=== PATIENT | male | born 1935 | race Caucasian/White ===

== ENCOUNTER 2021-11-19 07:27 | Observation (INO) | payer MEDICARE, OTHER ==
[2021-11-19 08:09] LABS: #Eosinphils 0.1 thou/uL (0.0-0.7); #Lymphocytes 0.9 thou/uL (1.20-3.40); #Monocytes 0.9 thou/uL (0.11-0.59); #Neutrophils 10.6 thou/uL (1.40-6.50); %Basophils 0.2 % (0.0-1.0); %Eosinophils 0.5 % (0.0-10.0); %Lymphocytes 6.9 % (21.0-51.0); %Monocytes 6.9 % (0.0-10.0); %Neutrophils 85.5 % (42.0-75.0); Hemoglobin 16.2 g/dL (14.0-18.0); Mean Corpuscular Hemoglobin 32.7 pg (27.0-31.0); Mean Corpuscular Volume 98.9 fL (78.0-98.0); Mean Platelet Volume 7.7 fL (7.4-10.4); Platelet Count 192 thou/uL (130-400); RBC Distribution Width 13.1 % (11.5-14.5); Red Blood Cell (RBC) Count 4.95 mill/uL (4.70-6.10); White Blood Cell (WBC) Count 12.4 thou/uL (4.8-10.8)
[2021-11-19 08:31] LABS: ALT (SGPT) 89 U/L (8-55); AST (SGOT) 106 U/L (5-34); Albumin 4.4 g/dL (3.4-4.8); Alkaline Phosphatase 177 U/L (40-110); Anion Gap 17 mmol/L (10-20); BUN (Urea Nitrogen) 27 mg/dL (8.4-25.7); Bilirubin, Total 1.2 mg/dL (0.2-1.2); CK (CPK) 296 U/L (30-200); Calc. Creatinine Clearance 0 mL/min (70-130); Calcium 11.3 mg/dL (7.8-10.44); Carbon Dioxide 30 mmol/L (23-31); Chloride 98 mmol/L (98-107); Estimated GFR 60; Globulin 3.3 g/dL (2.4-3.5); Glucose 152 mg/dL (83-110); Magnesium 1.8 mg/dL (1.6-2.6); Protein, Total 7.7 g/dL (5.8-8.1); Sodium 141 mmol/L (136-145)
[2021-11-19] MEDS ORDERED: Ondansetron PF 4 MG/2 ML Vial ONE (08:44)
[2021-11-19] MEDS ORDERED: Morphine 4 MG/ML VIAL ONE (08:44)
[2021-11-19] MEDS ORDERED: Lidocaine Viscous Sol 2% 15 ml UD Cup ONE (08:45)
[2021-11-19] MEDS ORDERED: Mag-Al 1200 mg/1200 mg/30 ML UDCUP ONE (08:45)
[2021-11-19] MEDS ORDERED: Dicyclomine 20 MG TAB ONE (09:47)
[2021-11-19] MEDS ORDERED: Acetaminophen 500 MG TAB ONE (09:47)
[2021-11-19] MEDS ORDERED: Morphine 2 MG/ML VIAL ONE (09:48)
[2021-11-19 10:42] LABS: Bacteria/HPF None Seen HPF (None Seen); Bilirubin Negative (Negative); Blood, Urine 1+ (Negative); Clarity Clear (Clear); Glucose, Urine (Dipstick) Normal (Negative); Ketone, Urine 10 mg/dL (Negative); Leukocyte Negative Leu/uL (Negative); Nitrite Negative (Negative); Protein, Urine (Dipstick) 30 mg/dL (Neg-Trace); Specific Gravity, Urine 1.018 (1.002-1.036); Squamous Epithelial None Seen HPF (0-3); Urobilinogen Normal mg/dL (Less than 2); WBC/HPF 0-3 HPF (0-3); pH, Urine 6.5 (5.0-9.0)
[2021-11-19 14:06] LABS: Troponin I 0.034 ng/mL (< 0.028)
[2021-11-19 15:55] VITALS: BMI 24.8
[2021-11-19] MEDS ORDERED: Bisacodyl 10 MG SUPP PR PRN (16:31)
[2021-11-19] MEDS ORDERED: Senokot S 8.6-50 MG TAB PO PRN (16:31)
[2021-11-19] MEDS ORDERED: Bisacodyl 5 MG TAB PO PRN (16:31)
[2021-11-19] MEDS ORDERED: Ondansetron ODT 4 MG TAB PO PRN (16:31)
[2021-11-19] MEDS ORDERED: Ondansetron PF 4 MG/2 ML Vial IVP PRN (16:31)
[2021-11-19 17:22] LABS: Troponin I 0.039 ng/mL (< 0.028)
[2021-11-19] MEDS: Sodium Chloride 0.9% 1,000 ML IV SCH (17:40)
[2021-11-19] MEDS: HYDROcodone/Acetaminophen 5/325 mg Tablet PO PRN (21:54)
[2021-11-19] MEDS: Dicyclomine 20 MG TAB PO SCH (21:55)
[2021-11-19] MEDS: Propranolol 60 MG TAB PO SCH (21:55)
[2021-11-19] MEDS: Nitroglycerin 2% Ointment 1 INCH/1 GM Packet TOP SCH (21:55)
[2021-11-20 05:21] LABS: #Basophils 0.1 thou/uL (0.0-0.2); #Eosinphils 0.3 thou/uL (0.0-0.7); #Lymphocytes 1.8 thou/uL (1.20-3.40); #Monocytes 1.1 thou/uL (0.11-0.59); #Neutrophils 6.1 thou/uL (1.40-6.50); %Basophils 0.6 % (0.0-1.0); %Eosinophils 3.2 % (0.0-10.0); %Monocytes 11.4 % (0.0-10.0); %Neutrophils 65.8 % (42.0-75.0); Mean Corpuscular HGB CONC 34.1 g/dL (32.0-36.0); Mean Corpuscular Volume 99.5 fL (78.0-98.0); Mean Platelet Volume 8.4 fL (7.4-10.4); Platelet Count 152 thou/uL (130-400); Red Blood Cell (RBC) Count 3.55 mill/uL (4.70-6.10); White Blood Cell (WBC) Count 9.3 thou/uL (4.8-10.8)
[2021-11-20 05:45] LABS: ALT (SGPT) 67 U/L (8-55); AST (SGOT) 77 U/L (5-34); Albumin 3.3 g/dL (3.4-4.8); Alkaline Phosphatase 129 U/L (40-110); Anion Gap 11 mmol/L (10-20); BUN (Urea Nitrogen) 44 mg/dL (8.4-25.7); Bilirubin, Total 1.4 mg/dL (0.2-1.2); Calc. Creatinine Clearance 52 mL/min (70-130); Calcium 8.8 mg/dL (7.8-10.44); Carbon Dioxide 28 mmol/L (23-31); Chloride 102 mmol/L (98-107); Estimated GFR 60; Globulin 2.5 g/dL (2.4-3.5); Glucose 95 mg/dL (83-110); Potassium 4.7 mmol/L (3.5-5.1); Protein, Total 5.8 g/dL (5.8-8.1); Sodium 136 mmol/L (136-145)
[2021-11-20] MEDS: Acetaminophen 325 MG TAB PO PRN ×2 (06:09→14:30)
[2021-11-20] MEDS: Nitroglycerin 2% Ointment 1 INCH/1 GM Packet TOP SCH ×3 (06:10→21:55)
[2021-11-20] MEDS ORDERED: Hydrochlorothiazide 25 MG TAB PO SCH (09:00)
[2021-11-20] MEDS: Sodium Chloride 0.9% 1,000 ML IV SCH ×3 (09:06→21:53)
[2021-11-20] MEDS: Allopurinol 300 MG TAB PO SCH (09:30)
[2021-11-20] MEDS: Dicyclomine 20 MG TAB PO SCH ×4 (09:30→21:54)
[2021-11-20] MEDS: Propranolol 60 MG TAB PO SCH ×2 (14:15→21:54)
[2021-11-20] MEDS ORDERED: Melatonin 3 MG TAB PO PRN (21:49)
[2021-11-21 05:08] LABS: Anion Gap 11 mmol/L (10-20); BUN (Urea Nitrogen) 24 mg/dL (8.4-25.7); Calc. Creatinine Clearance 63 mL/min (70-130); Calcium 8.3 mg/dL (7.8-10.44); Carbon Dioxide 25 mmol/L (23-31); Cardiac Risk 2.4 (Less than 4.5); Chloride 104 mmol/L (98-107); Cholesterol 109 mg/dl (< 200 Desired); Estimated GFR 76; Glucose 102 mg/dL (83-110); HDL Cholesterol 46 mg/dL (>60 Neg Risk); LDL Cholesterol, Calculated 43 mg/dL; Potassium 4.1 mmol/L (3.5-5.1); Sodium 136 mmol/L (136-145); Triglycerides 102 mg/dL (Less than 150)
[2021-11-21] MEDS: HYDROcodone/Acetaminophen 5/325 mg Tablet PO PRN (06:32)
[2021-11-21] MEDS: Nitroglycerin 2% Ointment 1 INCH/1 GM Packet TOP SCH ×2 (06:33→14:19)
[2021-11-21] MEDS: Sodium Chloride 0.9% 1,000 ML IV SCH (07:13)
[2021-11-21] MEDS: Dicyclomine 20 MG TAB PO SCH ×2 (09:21→12:22)
[2021-11-21] MEDS: Allopurinol 300 MG TAB PO SCH (09:21)
[2021-11-21] MEDS: Propranolol 60 MG TAB PO SCH (09:22)
[2021-11-21 10:24] LABS: #Eosinphils 0.5 thou/uL (0.0-0.7); #Lymphocytes 1.3 thou/uL (1.20-3.40); #Monocytes 0.7 thou/uL (0.11-0.59); #Neutrophils 4.2 thou/uL (1.40-6.50); %Basophils 0.4 % (0.0-1.0); %Eosinophils 6.9 % (0.0-10.0); %Lymphocytes 19.4 % (21.0-51.0); %Monocytes 10.6 % (0.0-10.0); %Neutrophils 62.6 % (42.0-75.0); Hemoglobin 10.3 g/dL (14.0-18.0); Mean Corpuscular HGB CONC 32.2 g/dL (32.0-36.0); Mean Corpuscular Hemoglobin 32.4 pg (27.0-31.0); Mean Platelet Volume 8.6 fL (7.4-10.4); Platelet Count 125 thou/uL (130-400); RBC Distribution Width 13.1 % (11.5-14.5); Red Blood Cell (RBC) Count 3.19 mill/uL (4.70-6.10); White Blood Cell (WBC) Count 6.6 thou/uL (4.8-10.8)
[2021-11-21 16:36] VITALS: BP 128/63; TEMP 97.4
[2021-11-22] MEDS ORDERED: Propranolol HCl LA 60 MG CAP PO SCH (09:00)
== END 2021-11-21 17:23 | disposition home or self-care (01) ==
LOC: ERS 07:27 → ERHOLD 12:47 → 2NO 15:26
PROVIDERS: ADMIT Internal Medicine; ATTEND Internal Medicine
DX: R55 Syncope and collapse (principal); E86.9 Volume depletion, unspecified; T50.2X5A Adverse effect of carbonic-anhydrase inhibitors, benzothiadiazides and other diuretics, initial encounter; I48.0 Paroxysmal atrial fibrillation; I10 Essential (primary) hypertension; I65.23 Occlusion and stenosis of bilateral carotid arteries; R79.89 Other specified abnormal findings of blood chemistry; R77.8 Other specified abnormalities of plasma proteins; I08.1 Rheumatic disorders of both mitral and tricuspid valves; M10.9 Gout, unspecified; I21.A1 Myocardial infarction type 2; Z87.891 Personal history of nicotine dependence; Z79.899 Other long term (current) drug therapy; Z20.822 Contact with and (suspected) exposure to COVID-19
CPT/HCPCS: 70450; 71045; 72125; 72131; 76705; 80048; 80053; 80061; 80307; 82550; 83735; 84484 ×2; 85025 ×2; 93005; 93306; 93880; 96361; 96374; 96375; 96376; 97150; 97535; 99285; G0378 ×4; J2270; U0003; U0005; 36415; 81003; 81015; 84443; 93010; J2405; J7050

== ENCOUNTER 2021-12-02 17:25 | Emergency (ER) | payer MEDICARE, OTHER ==
[2021-12-02 19:16] LABS: #Eosinphils 0.2 thou/uL (0.0-0.7); #Lymphocytes 0.7 thou/uL (1.20-3.40); #Monocytes 0.9 thou/uL (0.11-0.59); #Neutrophils 7.9 thou/uL (1.40-6.50); %Basophils 0.1 % (0.0-1.0); %Eosinophils 2.1 % (0.0-10.0); %Lymphocytes 7.2 % (21.0-51.0); %Monocytes 8.8 % (0.0-10.0); %Neutrophils 81.9 % (42.0-75.0); Hemoglobin 12.7 g/dL (14.0-18.0); Mean Corpuscular HGB CONC 34.2 g/dL (32.0-36.0); Mean Corpuscular Hemoglobin 33.5 pg (27.0-31.0); Mean Corpuscular Volume 98.1 fL (78.0-98.0); Mean Platelet Volume 6.9 fL (7.4-10.4); Platelet Count 282 thou/uL (130-400); RBC Distribution Width 13.3 % (11.5-14.5); White Blood Cell (WBC) Count 9.7 thou/uL (4.8-10.8)
[2021-12-02 19:36] LABS: Acetaminophen Less than 10.0 mcg/mL (10.0-30.0); Alcohol Less than 10 mg/dL (Less than 10); Salicylate Less than 8.0 mg/dL (15.0-30.0)
[2021-12-02 19:38] LABS: ALT (SGPT) 190 U/L (8-55); AST (SGOT) 199 U/L (5-34); Alkaline Phosphatase 392 U/L (40-110); Anion Gap 12 mmol/L (10-20); BUN (Urea Nitrogen) 32 mg/dL (8.4-25.7); Bilirubin, Total 1.2 mg/dL (0.2-1.2); CK (CPK) 34 U/L (30-200); Calc. Creatinine Clearance 0 mL/min (70-130); Calcium 9.5 mg/dL (7.8-10.44); Carbon Dioxide 27 mmol/L (23-31); Chloride 99 mmol/L (98-107); Estimated GFR 62; Globulin 3.1 g/dL (2.4-3.5); Glucose 107 mg/dL (83-110); Potassium 4.3 mmol/L (3.5-5.1); Protein, Total 7.1 g/dL (5.8-8.1); Sodium 134 mmol/L (136-145)
[2021-12-02 21:39] LABS: Bilirubin Negative (Negative); Blood, Urine Negative (Negative); Clarity Clear (Clear); Glucose, Urine (Dipstick) Normal (Negative); Ketone, Urine 40 mg/dL (Negative); Leukocyte Negative Leu/uL (Negative); Nitrite Negative (Negative); Protein, Urine (Dipstick) Negative (Neg-Trace); Urobilinogen Normal mg/dL (Less than 2)
== END 2021-12-02 22:37 | disposition home or self-care (01) ==
LOC: ERS 17:25
DX: R53.1 Weakness (principal); I10 Essential (primary) hypertension; I48.91 Unspecified atrial fibrillation; Z87.891 Personal history of nicotine dependence; Z79.899 Other long term (current) drug therapy
CPT/HCPCS: 36415; 71045; 80053; 80307; 81003; 82550; 83880; 84484; 85025; 93005

== ENCOUNTER 2021-12-03 19:41 | Inpatient (IN) | payer MEDICARE, OTHER ==
[2021-12-03 20:52] LABS: #Basophils 0.2 thou/uL (0.0-0.2); #Eosinphils 0.1 thou/uL (0.0-0.7); #Lymphocytes 0.3 thou/uL (1.20-3.40); #Monocytes 0.6 thou/uL (0.11-0.59); #Neutrophils 9.5 thou/uL (1.40-6.50); %Basophils 1.6 % (0.0-1.0); %Eosinophils 1.1 % (0.0-10.0); %Lymphocytes 2.6 % (21.0-51.0); %Monocytes 5.9 % (0.0-10.0); %Neutrophils 88.8 % (42.0-75.0); Hemoglobin 11.7 g/dL (14.0-18.0); Mean Corpuscular HGB CONC 34.8 g/dL (32.0-36.0); Mean Corpuscular Hemoglobin 33.4 pg (27.0-31.0); Mean Corpuscular Volume 96.2 fL (78.0-98.0); Mean Platelet Volume 6.8 fL (7.4-10.4); Platelet Count 218 thou/uL (130-400); RBC Distribution Width 13.2 % (11.5-14.5); White Blood Cell (WBC) Count 10.7 thou/uL (4.8-10.8)
[2021-12-03 21:14] LABS: ALT (SGPT) 103 U/L (8-55); AST (SGOT) 80 U/L (5-34); Albumin 3.4 g/dL (3.4-4.8); Alkaline Phosphatase 307 U/L (40-110); Anion Gap 13 mmol/L (10-20); BUN (Urea Nitrogen) 28 mg/dL (8.4-25.7); Bilirubin, Total 1.7 mg/dL (0.2-1.2); Calc. Creatinine Clearance 0 mL/min (70-130); Calcium 8.6 mg/dL (7.8-10.44); Carbon Dioxide 22 mmol/L (23-31); Chloride 100 mmol/L (98-107); Estimated GFR 66; Globulin 2.8 g/dL (2.4-3.5); Glucose 107 mg/dL (83-110); Lipase 27 U/L (8-78); Magnesium 1.4 mg/dL (1.6-2.6); Potassium 3.7 mmol/L (3.5-5.1); Protein, Total 6.2 g/dL (5.8-8.1); Sodium 131 mmol/L (136-145)
[2021-12-03 21:43] LABS: CKMB 1.6 ng/mL (0-6.6)
[2021-12-03] MEDS ORDERED: Aspirin Chewable 81 MG TAB ONE (22:03)
[2021-12-03] MEDS ORDERED: Magnesium 2 GM/50 ML BAG (IN WATER) ONE (23:16)
[2021-12-03] MEDS ORDERED: Acetaminophen 325 MG TAB PO PRN (23:55)
[2021-12-03] MEDS ORDERED: Ondansetron ODT 4 MG TAB PO PRN (23:55)
[2021-12-03] MEDS ORDERED: Ondansetron PF 4 MG/2 ML Vial IVP PRN (23:55)
[2021-12-04] MEDS ORDERED: Nitroglycerin 0.4 MG TAB (25 Tab Bottle) SL PRN (00:48)
[2021-12-04] MEDS ORDERED: Enoxaparin Sodium 80 MG/0.8 ML SYRINGE SC SCH ×2 (01:00→09:00)
[2021-12-04] MEDS: Sodium Chloride 0.9% 1,000 ML IV SCH ×4 (02:08→21:07)
[2021-12-04] MEDS: cefTRIAXone\\ROCEPHIN 2 GM in Sodium Chloride 0.9% 100 ML IVPB SCH (02:08)
[2021-12-04] MEDS ORDERED: VANCOMYCIN 2 GRAM/500 ML BAG 2 GM in Premix Bag 1 BAG IVPB SCH (04:00)
[2021-12-04 04:30] LABS: #Lymphocytes 0.8 thou/uL (1.20-3.40); #Monocytes 1.1 thou/uL (0.11-0.59); #Neutrophils 8.3 thou/uL (1.40-6.50); %Basophils 0.2 % (0.0-1.0); %Eosinophils 0.3 % (0.0-10.0); %Lymphocytes 8.2 % (21.0-51.0); %Neutrophils 80.3 % (42.0-75.0); Hemoglobin 10.8 g/dL (14.0-18.0); Mean Corpuscular Hemoglobin 33.7 pg (27.0-31.0); Mean Platelet Volume 7.1 fL (7.4-10.4); Platelet Count 209 thou/uL (130-400); RBC Distribution Width 13.1 % (11.5-14.5); White Blood Cell (WBC) Count 10.3 thou/uL (4.8-10.8)
[2021-12-04 05:03] LABS: ALT (SGPT) 87 U/L (8-55); AST (SGOT) 71 U/L (5-34); Albumin 3.1 g/dL (3.4-4.8); Alkaline Phosphatase 264 U/L (40-110); Anion Gap 16 mmol/L (10-20); BUN (Urea Nitrogen) 25 mg/dL (8.4-25.7); Bilirubin, Total 0.7 mg/dL (0.2-1.2); Calc. Creatinine Clearance 61 mL/min (70-130); Calcium 7.9 mg/dL (7.8-10.44); Carbon Dioxide 18 mmol/L (23-31); Chloride 102 mmol/L (98-107); Estimated GFR 72; Glucose 98 mg/dL (83-110); Potassium 3.8 mmol/L (3.5-5.1); Protein, Total 5.1 g/dL (5.8-8.1); Sodium 132 mmol/L (136-145)
[2021-12-04 05:10] LABS: Critical Call Chem Troponin I C7; Troponin I 2.122 ng/mL (< 0.028)
[2021-12-04 05:38] VITALS: BMI 26.4
[2021-12-04] MEDS ORDERED: Enoxaparin Sodium 40 MG/0.4 ML SYRINGE SC SCH (09:00)
[2021-12-04] MEDS ORDERED: Vancomycin 1 GM in Premix Bag 1 BAG IVPB SCH (09:00)
[2021-12-04 12:44] LABS: Hemoglobin 10.3 g/dL (14.0-18.0)
[2021-12-04] MEDS: HYDROcodone/Acetaminophen 5/325 mg Tablet PO PRN ×2 (13:10→22:34)
[2021-12-04 15:17] LABS: Bacteria/HPF None Seen HPF (None Seen); Bilirubin Negative (Negative); Blood, Urine Trace (Negative); Clarity Clear (Clear); Glucose, Urine (Dipstick) Normal (Negative); Ketone, Urine 10 mg/dL (Negative); Leukocyte Negative Leu/uL (Negative); Nitrite Negative (Negative); Protein, Urine (Dipstick) Negative (Neg-Trace); RBC/HPF 0-3 HPF (0-3); Specific Gravity, Urine 1.014 (1.002-1.036); Squamous Epithelial None Seen HPF (0-3); Urobilinogen Normal mg/dL (Less than 2); WBC/HPF 0-3 HPF (0-3); pH, Urine 5.5 (5.0-9.0)
[2021-12-04 15:19] LABS: Urine Culture Reflex No No
[2021-12-04] MEDS: Carvedilol 6.25 MG TAB PO SCH (17:17)
[2021-12-04] MEDS ORDERED: Cosyntropin 250 MCG VIAL SLOW IVP SCH (17:30)
[2021-12-04 20:18] LABS: Hemoglobin 10.3 g/dL (14.0-18.0)
[2021-12-04] MEDS: Morphine 2 MG/ML VIAL SLOW IVP PRN (23:57)
[2021-12-05] MEDS: cefTRIAXone\\ROCEPHIN 2 GM in Sodium Chloride 0.9% 100 ML IVPB SCH (00:05)
[2021-12-05] MEDS ORDERED: Vancomycin 1.5 GRAM/300 ML BAG 1.5 GM in Premix Bag 1 BAG IVPB SCH (04:00)
[2021-12-05] MEDS: Melatonin 3 MG TAB PO PRN (04:13)
[2021-12-05] MEDS: HYDROcodone/Acetaminophen 5/325 mg Tablet PO PRN (04:13)
[2021-12-05 04:55] LABS: Hemoglobin 10.4 g/dL (14.0-18.0)
[2021-12-05 05:16] LABS: ALT (SGPT) 70 U/L (8-55); AST (SGOT) 50 U/L (5-34); Albumin 2.9 g/dL (3.4-4.8); Alkaline Phosphatase 202 U/L (40-110); Anion Gap 12 mmol/L (10-20); BUN (Urea Nitrogen) 16 mg/dL (8.4-25.7); Bilirubin, Total 0.4 mg/dL (0.2-1.2); Calc. Creatinine Clearance 76 mL/min (70-130); Calcium 7.9 mg/dL (7.8-10.44); Carbon Dioxide 22 mmol/L (23-31); Chloride 107 mmol/L (98-107); Estimated GFR 84; Globulin 2.2 g/dL (2.4-3.5); Glucose 91 mg/dL (83-110); Potassium 3.6 mmol/L (3.5-5.1); Protein, Total 5.1 g/dL (5.8-8.1); Sodium 137 mmol/L (136-145)
[2021-12-05] MEDS ORDERED: Enoxaparin Sodium 40 MG/0.4 ML SYRINGE SC SCH (09:00)
[2021-12-05] MEDS: Carvedilol 6.25 MG TAB PO SCH ×2 (09:55→16:49)
[2021-12-05] MEDS: Sodium Chloride 0.9% 1,000 ML IV SCH ×2 (09:55→15:44)
[2021-12-05] MEDS ORDERED: Melatonin 3 MG TAB PO SCH (22:00)
[2021-12-06] MEDS: Sodium Chloride 0.9% 1,000 ML IV SCH (00:40)
[2021-12-06] MEDS: cefTRIAXone\\ROCEPHIN 2 GM in Sodium Chloride 0.9% 100 ML IVPB SCH (00:40)
[2021-12-06] MEDS: HYDROcodone/Acetaminophen 5/325 mg Tablet PO PRN ×2 (02:30→21:12)
[2021-12-06] MEDS: Morphine 2 MG/ML VIAL SLOW IVP PRN (05:58)
[2021-12-06] MEDS: Carvedilol 6.25 MG TAB PO SCH ×2 (10:15→17:55)
[2021-12-06] MEDS: Melatonin 3 MG TAB PO PRN (21:12)
[2021-12-07] MEDS: Morphine 2 MG/ML VIAL SLOW IVP PRN (06:20)
[2021-12-07] MEDS: Carvedilol 6.25 MG TAB PO SCH ×2 (09:01→17:38)
[2021-12-07] MEDS: Lidocaine 5% Patch TD SCH (17:38)
[2021-12-07] MEDS: Melatonin 3 MG TAB PO PRN (20:58)
[2021-12-07] MEDS: HYDROcodone/Acetaminophen 5/325 mg Tablet PO PRN (20:58)
[2021-12-08] MEDS: HYDROcodone/Acetaminophen 5/325 mg Tablet PO PRN (02:45)
[2021-12-08] MEDS: Transdermal Patch Removal TOP SCH (06:38)
[2021-12-08] MEDS: Morphine 2 MG/ML VIAL SLOW IVP PRN (09:02)
[2021-12-08] MEDS: Carvedilol 6.25 MG TAB PO SCH ×2 (09:03→16:58)
[2021-12-08] MEDS ORDERED: Electrolyte Replacement Protocol 1 EACH FS SCH (11:30)
[2021-12-08] MEDS ORDERED: Electrolyte Replacement Protocol FS PRN (12:15)
[2021-12-08 12:41] LABS: #Eosinphils 0.4 thou/uL (0.0-0.7); #Lymphocytes 1.3 thou/uL (1.20-3.40); #Monocytes 0.5 thou/uL (0.11-0.59); #Neutrophils 3.7 thou/uL (1.40-6.50); %Basophils 0.6 % (0.0-1.0); %Eosinophils 6.6 % (0.0-10.0); %Lymphocytes 21.1 % (21.0-51.0); %Neutrophils 62.7 % (42.0-75.0); Hemoglobin 11.7 g/dL (14.0-18.0); Mean Corpuscular HGB CONC 32.5 g/dL (32.0-36.0); Mean Corpuscular Hemoglobin 32.5 pg (27.0-31.0); Mean Platelet Volume 6.3 fL (7.4-10.4); Platelet Count 250 thou/uL (130-400); RBC Distribution Width 13.1 % (11.5-14.5); White Blood Cell (WBC) Count 5.9 thou/uL (4.8-10.8)
[2021-12-08 13:00] LABS: ALT (SGPT) 43 U/L (8-55); AST (SGOT) 30 U/L (5-34); Albumin 3.4 g/dL (3.4-4.8); Alkaline Phosphatase 176 U/L (40-110); Anion Gap 12 mmol/L (10-20); BUN (Urea Nitrogen) 12 mg/dL (8.4-25.7); Bilirubin, Total 0.6 mg/dL (0.2-1.2); Calc. Creatinine Clearance 60 mL/min (70-130); Calcium 8.7 mg/dL (7.8-10.44); Carbon Dioxide 28 mmol/L (23-31); Chloride 104 mmol/L (98-107); Estimated GFR 68; Globulin 2.7 g/dL (2.4-3.5); Glucose 86 mg/dL (83-110); Magnesium 1.7 mg/dL (1.6-2.6); Protein, Total 6.1 g/dL (5.8-8.1); Sodium 139 mmol/L (136-145)
[2021-12-08] MEDS ORDERED: Magnesium 2 GM/50 ML(in water) 2 GM in Premix Bag 1 BAG IVPB SCH (14:00)
[2021-12-08] MEDS: Lidocaine 5% Patch TD SCH (16:58)
[2021-12-08] MEDS ORDERED: Cyanocobalamin (Vitamin B-12) 1,000 MCG TAB PO SCH (21:00)
[2021-12-08] MEDS ORDERED: Folic Acid 1 MG TAB PO SCH (21:00)
[2021-12-09] MEDS: Transdermal Patch Removal TOP SCH (05:29)
[2021-12-09] MEDS ORDERED: Multivit, Therapeutic 1 TAB PO SCH (09:00)
[2021-12-09] MEDS: Carvedilol 6.25 MG TAB PO SCH ×2 (09:38→17:35)
[2021-12-09] MEDS ORDERED: Magnesium 2 GM/50 ML(in water) 2 GM in Premix Bag 1 BAG IVPB SCH (12:00)
[2021-12-09] MEDS ORDERED: Furosemide 20 MG TAB PO SCH (13:15)
[2021-12-09] MEDS ORDERED: Heparin 5,000 UNITS/ML VIAL SC SCH ×3 (15:00→21:00)
[2021-12-09 16:27] VITALS: TEMP 97.7
[2021-12-09] MEDS ORDERED: Dronedarone HCl 400 MG TAB PO SCH (17:00)
[2021-12-09] MEDS: Lidocaine 5% Patch TD SCH (17:37)
[2021-12-09 17:38] VITALS: BP 126/58
[2021-12-10] MEDS ORDERED: Furosemide 20 MG TAB PO SCH (07:30)
[2021-12-10] MEDS ORDERED: Bacitracin 1 PK TOP SCH (09:00)
[2021-12-10] MEDS ORDERED: Aspirin 81 mg Enteric Coated Tablet PO SCH (09:00)
== END 2021-12-09 19:00 | disposition home health service (06) | DRG 640 ==
LOC: ERS 19:41 → 2NO 23:28 → OBSVTOIN 12-04 07:45
PROVIDERS: ADMIT Internal Medicine; ATTEND Internal Medicine
DX: E86.0 Dehydration (principal); I21.A1 Myocardial infarction type 2; Z20.822 Contact with and (suspected) exposure to COVID-19; I95.9 Hypotension, unspecified; E87.1 Hypo-osmolality and hyponatremia; I48.0 Paroxysmal atrial fibrillation; K70.10 Alcoholic hepatitis without ascites; D53.9 Nutritional anemia, unspecified; E83.42 Hypomagnesemia; Z79.899 Other long term (current) drug therapy; Z91.81 History of falling
CPT/HCPCS: 36415; 70450; 71045; 74176; 80053; 80307; 80400; 81001; 81003; 82550; 82553; 83605; 83690; 83735; 83880; 83935; 84300; 84443; 84484; 85014; 85018; 85025; 87040; 87086; 93005; 93798; 93970; 96372; 96374; 96375; 97139; G0378; J0696; J0834; J1650; J2270; J3370; J3475; J3490; J7050; U0003; U0005

== ENCOUNTER 2022-02-10 07:13 | Outpatient (CLI) | payer MEDICARE, OTHER ==
[2022-02-10] MEDS ORDERED: Morphine 2 MG/ML VIAL ONE (09:36)
== END 2022-02-10 07:14 | disposition home or self-care (01) ==
LOC: NM 07:13
PROVIDERS: ATTEND Surgery
DX: K81.1 Chronic cholecystitis (principal)
CPT/HCPCS: 78227; A9537; J2270